=== PATIENT | male | born 1960 | race Caucasian/White ===

== ENCOUNTER 2020-03-20 13:00 | Outpatient (RCR) | payer OTHER, MEDICAID, SELFPAY | END 2020-05-01 08:23 | disposition home or self-care (01) | LOC: HO.PTCHIC 13:00 | PROVIDERS: PCP Internal Medicine; Visit Provider Neurological Surgery | DX: M54.12 Radiculopathy, cervical region (principal) | CPT/HCPCS: 97110; 97140; 97162 ==

== ENCOUNTER 2020-11-08 11:00 | Outpatient (RCR) | payer OTHER, MEDICAID, SELFPAY | END 2020-11-08 17:03 | disposition home or self-care (01) | LOC: HO.PTCHIC 11:00 | PROVIDERS: PCP Internal Medicine; Visit Provider Physician Assistant | DX: Z98.890 Other specified postprocedural states (principal) | CPT/HCPCS: 97110; 97140; 97162; 97164; 97530 ==

== ENCOUNTER 2022-07-30 05:43 | Day surgery (SDC) | payer MEDICARE, MEDICAID, SELFPAY ==
[2022-07-26 06:49] VITALS: BMI 24.2
--- NOTE | 2022-07-26 11:48 | HO.ANESPROP2 ---
HPI - Anesthesia Eval Consult details Narrative: 61yo M for Left Carpal Tunnel Release Office eval with PCP 07/17/22 without acute issues PMFSH Past Medical History Medical History HTN (hypertension) TIA (transient ischemic attack) Surgical History Surgical History H/O excision of lamina of cervical vertebra for decompression of spinal cord History of carpal tunnel repair History of excision of lamina of cervical vertebra for decompression of spinal cord Hx of appendectomy Hx of cholecystectomy Social History Social History Are you a primary post acute care nurse practitioner to a significant other at home: No Do you presently have visiting nurse or other home services: No Patient Tobacco Use Status: Never used Tobacco Meds Allergies Allergy/AdvReac Type Severity Reaction Status Date / Time No Known Allergies Allergy Verified 07/30/22 06:09 Home Medications Medication Instructions Recorded Confirmed Last Taken Type aspirin 81 mg tablet,delayed 81 mg PO DAILY 07/26/22 07/26/22 Unknown History release hydrochlorothiazide 12.5 mg tablet 12.5 mg PO QAM 07/26/22 07/26/22 Unknown History labetalol 100 mg tablet 50 mg PO BEDTIME 07/26/22 07/26/22 Unknown History labetalol 100 mg tablet 100 mg PO DAILY 07/26/22 07/26/22 Unknown History lisinopril 20 mg tablet 20 mg PO DAILY 07/26/22 07/26/22 Unknown History Exam Exam Date and Time: July 26, 2022 1148 Height,Weight and Vital Signs: Height 5 ft 9 in Weight 74.389 kg Assessment and Plan Assessment Anesthesia Assessment: Chart Reviewed
[2022-07-30] MEDS: Lactated Ringers 1,000 ML 100 ML IVCONT (06:10)
[2022-07-30 06:27] VITALS: BP 137/93; PULSE 86; RESP 18; TEMP 36.6; O2SAT 97
--- NOTE | 2022-07-30 07:58 | HO.ANESPROP2 ---
FORMERLY [facility], LATER [facility] Past Medical History Medical History HTN (hypertension) TIA (transient ischemic attack) Family History Family history of problems with anesthesia: No Surgical History Surgical History H/O excision of lamina of cervical vertebra for decompression of spinal cord History of carpal tunnel repair History of excision of lamina of cervical vertebra for decompression of spinal cord Hx of appendectomy Hx of cholecystectomy Social History Social History Are you a primary healthcare applications analyst to a significant other at home: No Do you presently have visiting nurse or other home services: No Patient Tobacco Use Status: Never used Tobacco Use of substances other than those prescribed or required for medical reasons: Yes Substance Use Frequency: Weekly Have you been hit, kicked, punched, or otherwise hurt by someone within the past year? If so, by whom?: No Advance Directives: No Advance Directives Information Provided: No Advance Directives on File: No Recently lost weight without trying: No Eating poorly because of decreased appetite: No Nutrition Risks: No Nutritional Risk Poor oral hygiene: Yes (partial upper denture, broken teeth upper and lower) Meds Allergies Allergy/AdvReac Type Severity Reaction Status Date / Time No Known Allergies Allergy Verified 07/30/22 06:09 Active Medications: Current Medications Lactated Ringer's (Lr) 1,000 mls @ 100 mls/hr IVCONT .Q10H NICK Last Admin: 07/30/22 06:10 Dose: 100 mls/hr Home Medications Medication Instructions Recorded Confirmed Last Taken Type aspirin 81 mg tablet,delayed 81 mg PO DAILY 07/26/22 07/26/22 Unknown History release hydrochlorothiazide 12.5 mg tablet 12.5 mg PO QAM 07/26/22 07/26/22 Unknown History labetalol 100 mg tablet 50 mg PO BEDTIME 07/26/22 07/26/22 Unknown History labetalol 100 mg tablet 100 mg PO DAILY 07/26/22 07/26/22 Unknown History lisinopril 20 mg tablet 20 mg PO DAILY 07/26/22 07/26/22 Unknown History Exam Exam Date and Time: July 30, 2022 0758 Height,Weight and Vital Signs: Height 5 ft 9 in Weight 74.389 kg Last Vital Signs Temp 97.9 F 07/30/22 06:27 Pulse 86 07/30/22 06:27 Resp 18 07/30/22 06:27 BP 137/93 H 07/30/22 06:27 Pulse Ox 97 07/30/22 06:27 O2 Del Method Room Air 07/30/22 06:27 Airway Mallampati Class: II TM Dist: >3cm Neck ROM: Full Heart: RRR Lungs: CTA Assessment and Plan Final Anesthetic Review Family History of Problems with Anesthesia: No ASA Class: II Final Preanesthetic Review: Meds/Allgs Chart Reviewed, Consent Obtained/Reviewed and Anes Risks/Benef Reviewed Patient Risk: Low Procedure Risk: Low Anesthetic Plan Anesthetic Plan: MAC: Disposition: Standard PACU
--- NOTE | 2022-07-30 08:09 | W.PM.OPN ---
Operative Note Operative Note Date of Service: 07/30/22 Narrative: Diagnosis: Left carpal tunnel syndrome Procedure: Left median nerve release Surgeon: Ludwig Patino MD PhD Description procedure: This 61-year-old male Is suffering from a left carpal tunnel syndrome. He was offered a decompression of the median nerve. The procedure complications were explained. He was consented. He was brought to the operating room, where moderate sedation was applied. Prepping and draping was done followed by time-out. Marcaine was injected into the mid volar region. A midvolr incision was made. The ligamentum Carpi transversum was opened sharply until the median nerve became visible. A Metzenbaum scissor was used to decompress the median nerve proximally and distally over its trajectory. Significant compression was present. Hemostasis was done. The incision was closed with 3 interrupted sutures. that compressive Sohan wrap was used for hemostasis. All sponge and needle counts were correct. Patient was transported to the recovery room Anesthesia: Moderate sedation and local anesthetic Blood loss: Minimal Complications: None Disposition: Discharge home
[2022-07-30 08:13] VITALS: BP 104/62; PULSE 81; RESP 16; TEMP 36.4; O2SAT 95
--- NOTE | 2022-07-30 08:17 | PM.DS ---
DS: Providers Provider Date of Service: 07/30/22 Date of discharge: 07/30/22 Primary care physician: Osmar Woods MD Admitting clinician: Ludwig Patino DS: Diagnosis Discharge Diagnosis (1) Carpal tunnel syndrome: Status: Acute DS: Summary Time Spent with Patient Time attestation: Total time managing care of this patient today ____ minutes. Discharge coordination time: Less than 30 minutes Quality: Safe Use of Opioids Does Pt have an Active Cancer Diagnosis on the Problem List?: No Quality: Stroke Does the patient have a stroke diagnosis?: No Physical Exam Vital Signs: Vital Signs: Last Vital Signs Temp 97.9 F 07/30/22 06:27 Pulse 86 07/30/22 06:27 Resp 18 07/30/22 06:27 BP 137/93 H 07/30/22 06:27 Pulse Ox 97 07/30/22 06:27 O2 Del Method Room Air 07/30/22 06:27 BMI result Body Mass Index 24.2 Discharge Plan Discharge Patient Disposition: Home, Self-Care Referrals: Osmar Woods MD [Primary Care Provider] - 1 Week Discharge Medications: New tramadol 50 mg tablet 50 mg PO Q6H PRN (Reason: pain) Qty: 30 0RF Continued aspirin 81 mg tablet,delayed release (DR/EC) 81 mg PO DAILY labetalol 100 mg Tablet 100 mg PO DAILY hydrochlorothiazide 12.5 mg Tablet 12.5 mg PO QAM lisinopril 20 mg Tablet 20 mg PO DAILY labetalol 100 mg Tablet 50 mg PO BEDTIME Discharge Orders: Discharge Order (Routine); Ordered 07/30/22 Ordered By: Geovanni Franks Diet: Advance to usual diet Activity on Discharge: As tolerated Activity Restrictions/Additional Instructions: You may remove your jeremy wrap on post op day 3, as well as the dressing underneath it There are sutures in your wound, and you will need these removed 10-14 days after surgery. Please call the office to arrange this visit, You can use your hand as much as you like, however, please avoid straining or heavy lifting It will help swelling in your hand to keep it elevated when you are not using it. You can shower on post op day 1, but please keep wound dry You can drive when you feel comfortable and are off narcotics If you experience any signs of infection such as fever, chills or redness/discharge from your wound,please call office right away
--- NOTE | 2022-07-30 08:19 | PC.NURSE ---
surgeon stated that antibiotic and IV Tylenol as ordered were not needed. Cefazolin 2 gm returned to pacu [facility]. Tylenol 1000 mg returned to [facility] but Leticia from pharmacy (per author request) came to worm picker tylenol as the [facility] door did not open for this return.
[2022-07-30 08:28] VITALS: BP 123/90; PULSE 76; RESP 18; TEMP 36.1; O2SAT 96
== END 2022-07-30 09:20 | disposition home or self-care (01) ==
PROVIDERS: PCP Internal Medicine; Visit Provider Neurological Surgery
PROC: (CPT 64721; principal; 2022-07-30 07:30)
DX: G56.02 Carpal tunnel syndrome, left upper limb (principal); R20.2 Paresthesia of skin; R20.0 Anesthesia of skin; M79.642 Pain in left hand; I10 Essential (primary) hypertension; Z86.73 Personal history of transient ischemic attack (TIA), and cerebral infarction without residual deficits; Z79.82 Long term (current) use of aspirin; Z79.899 Other long term (current) drug therapy; Z98.890 Other specified postprocedural states
CPT/HCPCS: 64721; J0131; J0690; J1100; J2250; J2405; J3010

== ENCOUNTER → 2022-08-14 10:44 | Outpatient (BNVA) | payer MEDICARE, MEDICAID, SELFPAY | PROVIDERS: PCP Internal Medicine; Visit Provider Neurological Surgery | DX: Z48.811 Encounter for surgical aftercare following surgery on the nervous system (principal); Z86.69 Personal history of other diseases of the nervous system and sense organs | CPT/HCPCS: 99212 ==

== ENCOUNTER 2022-11-26 09:15 | Outpatient (REF) | payer MEDICARE, MEDICAID, SELFPAY ==
[2022-11-26 15:50] LABS: Cholesterol 188 mg/dL (<200); HDL Cholesterol 55 mg/dL (>40); LDL Cholesterol Calculated 98 mg/dL (<100); Triglycerides 177 mg/dL (<150)
== END 2022-11-26 09:16 | disposition home or self-care (01) ==
LOC: HO.CHCLDS 09:15
PROVIDERS: Visit Provider Internal Medicine
DX: E78.49 Other hyperlipidemia (principal)
CPT/HCPCS: 36415; 80061

== ENCOUNTER 2023-06-03 14:40 | Outpatient (AMB) | payer MEDICARE, MEDICAID, SELFPAY ==
--- NOTE | 2023-06-03 15:51 | A.OFFVIS_ITS ---
Intake Intake Visit Reasons: neck to shoulder pain burning Allergies No Known Allergies Allergy (Verified 07/30/22 06:09) [facility] Medical History HTN (hypertension) TIA (transient ischemic attack) Surgical History H/O excision of lamina of cervical vertebra for decompression of spinal cord History of carpal tunnel repair History of excision of lamina of cervical vertebra for decompression of spinal cord Hx of appendectomy Hx of cholecystectomy Social History Are you a primary career consultant to a significant other at home: No Do you presently have visiting nurse or other home services: No Patient Tobacco Use Status: Never used Tobacco Assessment & Plan Assessment & Plan (1) Cervical radiculopathy: Code(s): M54.12 - Radiculopathy, cervical region Plan Mr Harrington is a patient known to us from multiple surgeries including previous ACDF C4-5, C5-6 with posterior bilateral C5, C6 and C7 foraminotomies in 2020. He also had a carpal tunnel release done by Dr. Patino last year. Comes in because he has been having over the last 4-6 months worsening of his neck pain, radiating down into his right trapezius and right shoulder. The pain does wake him up at night. If he turns his head the right way he can make it shoots down into his shoulder. He also reports feelings of weakness in his arm. He can take Motrin or Tylenol as needed but generally they are not effective. On my exam he has no focal findings, his wounds are all healed up and overall his exam is reassuring. My suspicion is he may be having adjacent segment disease at C3- 4 given that is dermatomal distribution is down into the shoulder. I am going to order an MRI cervical spine with and without gadolinium. I ordered Ativan for anxiety before he goes in the MRI machine. Total amount of time spent in this visit was 20 minutes in discussion of symptoms, ordering imaging and subsequent plan of care Geovanni Patino MD,PhD [facility] Orders: Orders MR cervical spine wo/w con Today M47.812 - Spondylosis without myelopathy or radiculopathy, cervical region Medications: New lorazepam (Ativan) take one tab an hour prior to mri and one tab upon entering mri if needed. 1 mg PO ONCE PRN 2 tabs 0RF anxiety Coding Level of Care Code Est Pt Level 3 (26227) Diagnoses Cervical radiculopathy M54.12
== END 2023-06-03 16:01 | disposition home or self-care (01) ==
PROVIDERS: PCP Internal Medicine; Visit Provider Physician Assistant
DX: M54.12 Radiculopathy, cervical region (principal)
CPT/HCPCS: 99213

== ENCOUNTER → 2023-06-03 14:40 | Outpatient (BNVA) | payer MEDICARE, MEDICAID, OTHER, SELFPAY | PROVIDERS: PCP Internal Medicine; Visit Provider Physician Assistant | DX: M54.12 Radiculopathy, cervical region (principal) | CPT/HCPCS: 99212 ==

== ENCOUNTER 2023-06-09 08:40 | Outpatient (REF) | payer MEDICARE, MEDICAID, OTHER, SELFPAY ==
[2023-06-09 14:57] LABS: Alanine Aminotransferase 44 U/L (0-40); Albumin Level 4.2 g/dL (3.5-5.0); Alkaline Phosphatase 61 U/L (39-117); Anion Gap 12 (12-20); Aspartate Amino Transferase 23 U/L (5-37); Bilirubin Total 1.3 mg/dL (0.0-1.0); Blood Urea Nitrogen 17 mg/dL (9-16); Calcium 9.8 mg/dL (8.4-10.2); Carbon Dioxide 30 mmol/L (22-29); Chloride 105 mmol/L (96-108); Cholesterol 159 mg/dL (<200); Estimated Glomerular Filt Rate > 60; Glucose Random 77 mg/dL (60-115); HDL Cholesterol 52 mg/dL (>40); LDL Cholesterol Calculated 79 mg/dL (<100); Potassium 3.7 mmol/L (3.3-5.1); Sodium 143 mmol/L (135-145); Total Protein 7.4 g/dL (6.5-8.0); Triglycerides 144 mg/dL (<150)
== END 2023-06-09 08:41 | disposition home or self-care (01) ==
LOC: HO.CHCLDS 08:40
PROVIDERS: Visit Provider Internal Medicine
DX: I10 Essential (primary) hypertension (principal); E78.00 Pure hypercholesterolemia, unspecified
CPT/HCPCS: 36415; 80053; 80061

== ENCOUNTER 2023-06-23 13:19 | Outpatient (REF) | payer OTHER, MEDICARE, MEDICAID, SELFPAY ==
--- NOTE | ~2023-06-23 | MR_ITS ---
EXAMINATION: MR CERVICAL SPINE WITHOUT AND WITH CONTRAST CLINICAL INFORMATION: Numbness and burning in right upper extremity. Left arm weakness. Finger numbness on right side. Prior cervical fusion surgery. COMPARISON: MRI dated 05/22/2021. TECHNIQUE: Multiplanar, multisequential imaging of the cervical spine was performed before and after the intravenous administration of 8 mL of Gadavist. FINDINGS: VERTEBRAL BODIES AND PARASPINAL SOFT TISSUES: The patient is status post previous anterior cervical discectomies and fusion with hardware instrumentation at the C4-C5 and C5-C6 levels. Mild posterior endplate edema noted at the C3-C4 level with a minimal retrosubluxation. There is a stable mild leftward curvature of the cervical spine as well. Moderate disc space narrowing again evident with a mild posterior subluxation at the C6-C7 level. The remainder of the marrow is fairly homogeneous. No compression fractures are seen. The paraspinal soft tissues are normal. The vertebral artery flow-voids are maintained. The imaged lung apices are grossly clear. CERVICOMEDULLARY JUNCTION AND VISUALIZED POSTERIOR FOSSA: The imaged portions of the brain demonstrate no acute abnormality. No cord signal changes or syrinx visible. Of note, there is mild mucosal thickening and dependent fluid in the sphenoid sinus cavities. No abnormal intradural enhancement is seen on postcontrast imaging. SPINAL LEVELS: C2-C3: No significant disc pathology, central canal stenosis, or foraminal narrowing. C3-C4: [id number] loss of disc height and mild posterior subluxation again evident. Broad-based disc-osteophyte complex impresses upon the ventral cord and thecal sac with advanced right-sided facet arthropathy, progressed since the previous exam. Severe right foraminal narrowing and mild central canal stenosis. There is edema in the right articular processes with a facet joint effusion. Additional mild edema is present in the deep right posterior paraspinal soft tissues, presumed to be reactive. Findings are new compared to prior imaging. Moderate to severe left foraminal narrowing as well, unchanged. C4-C5: Post fusion changes with hardware instrumentation. Uncovertebral joint spurring results in [id number] foraminal encroachment. C5-C6: Post fusion changes with bulky uncovertebral joint spurring on the right side, as on prior imaging with severe right foraminal encroachment. No central canal stenosis. C6-C7: Moderate loss of disc height and posterior subluxation, as on prior imaging. Bulging disc and uncovertebral joint spurring with facet arthropathy result in significant right foraminal encroachment. Mild left foraminal narrowing. No central canal stenosis. C7-T1: Severe right-sided facet arthropathy and mild right foraminal narrowing. No focal disc protrusion or central canal stenosis. MR/MR cervical spine wo/w con IMPRESSION: Worsened right-sided facet arthropathy at the C3-C4 level with edema in the right articular processes and deep anterior right paraspinal soft tissues, presumably reactive. Mild central canal stenosis and mild ventral cord distortion. Mild posterior endplate edema. [id number] foraminal narrowing, worse on the right side. Status post previous anterior cervical discectomy and fusion with hardware instrumentation at the C4-C5 and C5-C6 levels. Severe right foraminal narrowing at C5-C6, unchanged from the previous exam. Stable moderate loss of disc height at the C6-C7 level with a generalized disc bulge and endplate spurring resulting in severe right foraminal encroachment. [id number] right-sided facet arthropathy. Stable right-sided hypertrophic facet arthropathy and mild right foraminal narrowing at the C7-T1 level.
[2023-06-23] MEDS: gadobutroL 10 ML VIAL IVPUSH (14:16)
== END 2023-06-23 13:20 | disposition home or self-care (01) ==
LOC: HO.MRI 13:19
PROVIDERS: PCP Internal Medicine; Visit Provider Physician Assistant
DX: M47.812 Spondylosis without myelopathy or radiculopathy, cervical region (principal)
CPT/HCPCS: 72156; A9585

== ENCOUNTER 2023-07-23 15:15 | Outpatient (AMB) | payer OTHER, MEDICARE, MEDICAID, SELFPAY ==
--- NOTE | 2023-07-23 15:22 | MHC.OFFVIS ---
Vital Signs 07/23/23 15:34 Height 5 ft 9 in Weight 179 lb 2 oz BMI 26.4 BP 138/88 Blood Pressure Location Lt brachial Position Sitting Respiration 16 Pulse 80 Pulse Source Pulse Oximeter Pulse Oximetry (%) 97 Oxygen Delivery Method Room Air Intake Visit Reasons: CERVICAL RADICULOPATHY Intake Note: Patient comes in for initial visit was referred by spine center. Reports pain 05/17. Allergies No Known Allergies Allergy (Verified 07/23/23 15:35) HPI Comments Details: Thony is very pleasant 62 years old gentleman who presents in my office with complains on pain in the back of the neck with radiation to the right upper shoulder. He reports his pain is intermittent, the pain is related to positioning of his head, and associated with numbness of the right side of the neck, arm, chest, and burning sensation. He reports that his problem started on August 06. He reports that pain onset was sudden and the pain is intermittent and not constant. He can not sleep normally because of his pain can not do activities of daily living can not take care of himself but he can not function normally. He is retired individual. Last time he worked was July of 2018. He reports that weather changes and called aggravate his pain as well as movement of the neck. His pain is most severe in the morning and less severe during the daytime. In terms of tissue damage he reports his pain is jumping, flushing, shooting, stabbing, lancinating, sharp, cutting, lacerating, pinching, cramping, crushing, hot burning, scalding, searing, tingling, stinging. He went for consultation for his pain with [facility], he was sent for MRI of the cervical spine. From the last note of Geovanni Franks the possibility of the additional surgery on his neck can not be excluded. Nevertheless he came to me today to discuss possibility of treatment of his neck pain with interventional pain management. He has a MRI of cervical spine which is dictated as below. There are significant changes at C3-C4 level with disc protrusion this level and mild cervical canal stenosis. There is also severe right-sided corresponding to the most of his pain C3-C4 foraminal stenosis. This patient had history of physical therapy each time he went for his surgery. He never had any significant injections in the past. His past medical history is: Headaches, hypertension, past surgical history: Anterior and posterior fusion of the neck. 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 [phone] Siomara Augustin. He denies smoking cigarettes drinks 5 beers a week denies coffee and caffeinated beverages and admits recreational drugs every day. Most likely cannabis. [facility] Medical History HTN (hypertension) TIA (transient ischemic attack) Surgical History H/O excision of lamina of cervical vertebra for decompression of spinal cord History of carpal tunnel repair History of excision of lamina of cervical vertebra for decompression of spinal cord Hx of appendectomy Hx of cholecystectomy Social History Are you a primary long term care pharmacist to a significant other at home: No Do you presently have visiting nurse or other home services: No Patient Tobacco Use Status: Never used Tobacco Review of Systems Const All systems reviewed & are unremarkable except as noted in HPI and below Reports no additional complaints Eyes Reports no additional complaints ENT Reports no additional complaints and Reports Normal hearing present Card Reports no additional complaints Resp Reports no additional complaints GI Reports no additional complaints Reports no additional complaints Musc Reports as per HPI Neuro Reports as per HPI, Reports Normal hearing present, Denies Abnormal speech present and Denies Sensory deficit (Neuro) Psych Reports no additional complaints Physical Exam Vital Signs: Last Vital Signs Pulse 80 07/23/23 15:34 Resp 16 07/23/23 15:34 BP 138/88 07/23/23 15:34 Pulse Ox 97 07/23/23 15:34 Oxygen Delivery Method Room Air 07/23/23 15:34 BMI result Body Mass Index 26.4 Const General: cooperative, comfortable, no acute distress and well groomed Orientation/consciousness: patient oriented x3 Eyes General: appearance normal, both eyes and all related structures Pupils: Equal, round and reactive pupils present EOM: EOMs intact bilaterally Neck Other: There are 2 scars on the 1 on anterior surface of the neck on the right side and 1 on posterior midline surface of the neck both heart is are very healed no signs of inflammation or infection. Neck: No full ROM Chest Chest palpation & inspection: normal inspection of the chest Resp Effort & Inspection: normal respiratory effort, able to speak in complete sentences, normal respiratory pattern, no audible wheezes and no cough Cardio Jugular venous distension: no JVD GI Inspection: Yes normal to inspection Neuro General: patient oriented x3 and gait normal Cranial nerves: Yes CN's II-XII intact bilaterally, Yes Equal, round and reactive pupils present, Yes Normal hearing present and Yes Ability to bilaterally elevate shoulders present Speech: No Abnormal speech present Gait exam (Neuro): Normal gait present Motor exam (neuro): 5/5 motor strength present throughout Sensory Exam: No Sensory deficit (Neuro) Extrem General: No pedal edema Psych Speech and movement: Normal speech and movement present Affect: normal affect Attitude: cooperative Thought process: Normal thought process present Thought content: Normal thought content present Insight: Good insight present (Psych) Judgement: Good judgement present (Psych) Results Reviewed Results Reviewed: MR CERVICAL SPINE WITHOUT AND WITH CONTRAST CLINICAL INFORMATION: Numbness and burning in right upper extremity. Left arm weakness. Finger numbness on right side. Prior cervical fusion surgery. COMPARISON: MRI dated 05/22/2021. TECHNIQUE: Multiplanar, multisequential imaging of the cervical spine was performed before and after the intravenous administration of 8 mL of Gadavist. FINDINGS: VERTEBRAL BODIES AND PARASPINAL SOFT TISSUES: The patient is status post previous anterior cervical discectomies and fusion with hardware instrumentation at the C4-C5 and C5-C6 levels. Mild posterior endplate edema noted at the C3-C4 level with a minimal retrosubluxation. There is a stable mild leftward curvature of the cervical spine as well. Moderate disc space narrowing again evident with a mild posterior subluxation at the C6-C7 level. The remainder of the marrow is fairly homogeneous. No compression fractures are seen. The paraspinal soft tissues are normal. The vertebral artery flow-voids are maintained. The imaged lung apices are grossly clear. CERVICOMEDULLARY JUNCTION AND VISUALIZED POSTERIOR FOSSA: The imaged portions of the brain demonstrate no acute abnormality. No cord signal changes or syrinx visible. Of note, there is mild mucosal thickening and dependent fluid in the sphenoid sinus cavities. No abnormal intradural enhancement is seen on postcontrast imaging. SPINAL LEVELS: C2-C3: No significant disc pathology, central canal stenosis, or foraminal narrowing. C3-C4: Qhie-kv-qxbynjdf loss of disc height and mild posterior subluxation again evident. Broad-based disc-osteophyte complex impresses upon the ventral cord and thecal sac with advanced right-sided facet arthropathy, progressed since the previous exam. Severe right foraminal narrowing and mild central canal stenosis. There is edema in the right articular processes with a facet joint effusion. Additional mild edema is present in the deep right posterior paraspinal soft tissues, presumed to be reactive. Findings are new compared to prior imaging. Moderate to severe left foraminal narrowing as well, unchanged. C4-C5: Post fusion changes with hardware instrumentation. Uncovertebral joint spurring results in [id number]-[id number] foraminal encroachment. C5-C6: Post fusion changes with bulky uncovertebral joint spurring on the right side, as on prior imaging with severe right foraminal encroachment. No central canal stenosis. C6-C7: Moderate loss of disc height and posterior subluxation, as on prior imaging. Bulging disc and uncovertebral joint spurring with facet arthropathy result in significant right foraminal encroachment. Mild left foraminal narrowing. No central canal stenosis. C7-T1: Severe right-sided facet arthropathy and mild right foraminal narrowing. No focal disc protrusion or central canal stenosis. MR/MR cervical spine wo/w con IMPRESSION: Worsened right-sided facet arthropathy at the C3-C4 level with edema in the right articular processes and deep anterior right paraspinal soft tissues, presumably reactive. Mild central canal stenosis and mild ventral cord distortion. Mild posterior endplate edema. Gbqspoue-dj-pekwbs foraminal narrowing, worse on the right side. Status post previous anterior cervical discectomy and fusion with hardware instrumentation at the C4-C5 and C5-C6 levels. Severe right foraminal narrowing at C5-C6, unchanged from the previous exam. Stable moderate loss of disc height at the C6-C7 level with a generalized disc bulge and endplate spurring resulting in severe right foraminal encroachment. Euwzmumd-xx-jtewjz right-sided facet arthropathy. Stable right-sided hypertrophic facet arthropathy and mild right foraminal narrowing at the C7-T1 leve Assessment & Plan Assessment & Plan (1) Postlaminectomy syndrome of cervical region: Code(s): M96.1 - Postlaminectomy syndrome, not elsewhere classified Category: Medical (2) Chronic pain syndrome: Code(s): G89.4 - Chronic pain syndrome Category: Medical Plan Examining the MRI of this patient widespread and significant hardware in the neck is noted. Most likely the images on fluoroscopy of this patient will be of very poor quality to perform any injections in the neck. Nevertheless I decided to send him for x-ray of cervical spine and evaluate position and quality of hardware he has not his neck. Unfortunately neuromodulation with spinal cord stimulation would be impossible for this patient because of posterior fusion. His pain is intermittent and therefore I do not believe that intrathecal pain pump be good idea for the pain of this patient. Possibility exists to perform intra-articular C3-C4 injection on the right however it might be technically difficult because of hardware. C3 and C4 left-sided medial branch block also can not be attempted but again could be difficult because of the hardware and position of the elements of hardware. If by examining the x-rays of his cervical spine I will decide that I will be able to try to do some injections in his neck I will schedule him for the procedure as above. He will visit me in 1 week to discuss possible procedures with me. Orders: Orders XR cervical spine 3V Today M96.1 - Postlaminectomy syndrome, not elsewhere classified Coding Level of Care Code New Pt Level 3 (20005) Diagnoses Postlaminectomy syndrome of cervical region M96.1 Chronic pain syndrome G89.4
[2023-07-23 15:34] VITALS: BP 138/88; PULSE 80; RESP 16; O2SAT 97; BMI 26.4
== END 2023-07-23 16:09 | disposition home or self-care (01) ==
PROVIDERS: PCP Internal Medicine; Referring Provider Physician Assistant; Visit Provider Anesthesiology
DX: M96.1 Postlaminectomy syndrome, not elsewhere classified (principal); G89.4 Chronic pain syndrome
CPT/HCPCS: 99203

== ENCOUNTER → 2023-07-23 15:15 | Outpatient (BNVA) | payer OTHER, MEDICARE, MEDICAID, SELFPAY | PROVIDERS: PCP Internal Medicine; Referring Provider Physician Assistant; Visit Provider Anesthesiology | DX: G89.4 Chronic pain syndrome (principal); M96.1 Postlaminectomy syndrome, not elsewhere classified | CPT/HCPCS: 99202 ==

== ENCOUNTER 2023-08-14 11:29 | Outpatient (REF) | payer OTHER, SELFPAY ==
--- NOTE | ~2023-08-14 | XR_ITS ---
EXAMINATION: XR CERVICAL SPINE CLINICAL INFORMATION: Post laminectomy syndrome, not elsewhere classified. COMPARISON: MR cervical spine 06/23/2023. TECHNIQUE: 3 views of the cervical spine were obtained. FINDINGS: Straightening of the normal cervical lordosis. Status post ACDF with hardware spanning C4-C5 and C5-C6. Spondylosis with moderate loss of disc space height and hypertrophic change at C6-C7. Mild anterior loss of height of C7 vertebral body. XR/XR cervical spine 3V IMPRESSION: 1. Status post anterior cervical discectomies and fusion at C4-C5 and C5-C6. Hardware appears intact. 2. Advanced degenerative changes at C6-C7.
== END 2023-08-14 11:30 | disposition home or self-care (01) ==
LOC: HO.XRAY 11:29
PROVIDERS: PCP Internal Medicine; Visit Provider Anesthesiology
DX: M96.1 Postlaminectomy syndrome, not elsewhere classified (principal)
CPT/HCPCS: 72040

== ENCOUNTER 2023-09-01 13:46 | Outpatient (AMB) | payer OTHER, SELFPAY ==
--- NOTE | 2023-09-01 13:54 | MHC.OFFVIS ---
Vital Signs 09/01/23 13:59 Height 5 ft 9 in Weight 180 lb 4 oz BMI 26.6 BP 118/76 Blood Pressure Location Lt brachial Position Sitting Respiration 16 Pulse 79 Pulse Source Pulse Oximeter Pulse Oximetry (%) 95 Oxygen Delivery Method Room Air Intake Visit Reasons: Discuss X-Ray Results Intake Note: Patient comes in to discuss xray results. Reports pain 05/17. Allergies No Known Allergies Allergy (Verified 09/01/23 13:59) HPI Comments Details: Thony is back in my office after x-ray of the cervical spine I sent him for to evaluate hardware in his cervical spine. Unfortunately patient today informed me that he is moving to [place]. His move will be within few weeks. Therefore at this time it has a moot point to continue any evaluation and or planning new treatments for this patient. I wish him good luck and recommend him to find a good pain medicine doctor as well as good neurosurgeon to help his pain. very pleasant 62 years old gentleman who presents in my office with complains on pain in the back of the neck with radiation to the right upper shoulder. He reports his pain is intermittent, the pain is related to positioning of his head, and associated with numbness of the right side of the neck, arm, chest, and burning sensation. He reports that his problem started on August 06. He reports that pain onset was sudden and the pain is intermittent and not constant. He can not sleep normally because of his pain can not do activities of daily living can not take care of himself but he can not function normally. He is retired individual. Last time he worked was July of 2018. He reports that weather changes and called aggravate his pain as well as movement of the neck. His pain is most severe in the morning and less severe during the daytime. In terms of tissue damage he reports his pain is jumping, flushing, shooting, stabbing, lancinating, sharp, cutting, lacerating, pinching, cramping, crushing, hot burning, scalding, searing, tingling, stinging. He went for consultation for his pain with [facility], he was sent for MRI of the cervical spine. From the last note of Geovanni Franks the possibility of the additional surgery on his neck can not be excluded. Nevertheless he came to me today to discuss possibility of treatment of his neck pain with interventional pain management. He has a MRI of cervical spine which is dictated as below. There are significant changes at C3-C4 level with disc protrusion this level and mild cervical canal stenosis. There is also severe right-sided corresponding to the most of his pain C3-C4 foraminal stenosis. This patient had history of physical therapy each time he went for his surgery. He never had any significant injections in the past. His past medical history is: Headaches, hypertension, past surgical history: Anterior and posterior fusion of the neck. 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 He denies smoking cigarettes drinks 5 beers a week denies coffee and caffeinated beverages and admits recreational drugs every day. Most likely cannabis. [facility] Medical History HTN (hypertension) TIA (transient ischemic attack) Surgical History H/O excision of lamina of cervical vertebra for decompression of spinal cord History of carpal tunnel repair History of excision of lamina of cervical vertebra for decompression of spinal cord Hx of appendectomy Hx of cholecystectomy Social History Are you a primary day care director to a significant other at home: No Do you presently have visiting nurse or other home services: No Patient Tobacco Use Status: Never used Tobacco Review of Systems Const All systems reviewed & are unremarkable except as noted in HPI and below ENT Reports Normal hearing present Neuro Reports Normal hearing present, Denies Abnormal speech present and Denies Sensory deficit (Neuro) Physical Exam Vital Signs: Last Vital Signs Pulse 79 09/01/23 13:59 Resp 16 09/01/23 13:59 BP 118/76 09/01/23 13:59 Pulse Ox 95 09/01/23 13:59 Oxygen Delivery Method Room Air 09/01/23 13:59 BMI result Body Mass Index 26.6 Const General: cooperative, comfortable, no acute distress and well groomed Orientation/consciousness: patient oriented x3 Eyes General: appearance normal, both eyes and all related structures Pupils: Equal, round and reactive pupils present EOM: EOMs intact bilaterally Neck Other: There are 2 scars on the 1 on anterior surface of the neck on the right side and 1 on posterior midline surface of the neck both heart is are very healed no signs of inflammation or infection. Neck: No full ROM Chest Chest palpation & inspection: normal inspection of the chest Resp Effort & Inspection: normal respiratory effort, able to speak in complete sentences, normal respiratory pattern, no audible wheezes and no cough Cardio Jugular venous distension: no JVD GI Inspection: Yes normal to inspection Neuro General: patient oriented x3 and gait normal Cranial nerves: Yes CN's II-XII intact bilaterally, Yes Equal, round and reactive pupils present, Yes Normal hearing present and Yes Ability to bilaterally elevate shoulders present Speech: No Abnormal speech present Gait exam (Neuro): Normal gait present Motor exam (neuro): 5/5 motor strength present throughout Sensory Exam: No Sensory deficit (Neuro) Extrem General: No pedal edema Psych Speech and movement: Normal speech and movement present Affect: normal affect Attitude: cooperative Thought process: Normal thought process present Thought content: Normal thought content present Insight: Good insight present (Psych) Judgement: Good judgement present (Psych) Results Reviewed Results Reviewed: MR CERVICAL SPINE WITHOUT AND WITH CONTRAST CLINICAL INFORMATION: Numbness and burning in right upper extremity. Left arm weakness. Finger numbness on right side. Prior cervical fusion surgery. COMPARISON: MRI dated 05/22/2021. TECHNIQUE: Multiplanar, multisequential imaging of the cervical spine was performed before and after the intravenous administration of 8 mL of Gadavist. FINDINGS: VERTEBRAL BODIES AND PARASPINAL SOFT TISSUES: The patient is status post previous anterior cervical discectomies and fusion with hardware instrumentation at the C4-C5 and C5-C6 levels. Mild posterior endplate edema noted at the C3-C4 level with a minimal retrosubluxation. There is a stable mild leftward curvature of the cervical spine as well. Moderate disc space narrowing again evident with a mild posterior subluxation at the C6-C7 level. The remainder of the marrow is fairly homogeneous. No compression fractures are seen. The paraspinal soft tissues are normal. The vertebral artery flow-voids are maintained. The imaged lung apices are grossly clear. CERVICOMEDULLARY JUNCTION AND VISUALIZED POSTERIOR FOSSA: The imaged portions of the brain demonstrate no acute abnormality. No cord signal changes or syrinx visible. Of note, there is mild mucosal thickening and dependent fluid in the sphenoid sinus cavities. No abnormal intradural enhancement is seen on postcontrast imaging. SPINAL LEVELS: C2-C3: No significant disc pathology, central canal stenosis, or foraminal narrowing. C3-C4: Immz-rg-zpluslix loss of disc height and mild posterior subluxation again evident. Broad-based disc-osteophyte complex impresses upon the ventral cord and thecal sac with advanced right-sided facet arthropathy, progressed since the previous exam. Severe right foraminal narrowing and mild central canal stenosis. There is edema in the right articular processes with a facet joint effusion. Additional mild edema is present in the deep right posterior paraspinal soft tissues, presumed to be reactive. Findings are new compared to prior imaging. Moderate to severe left foraminal narrowing as well, unchanged. C4-C5: Post fusion changes with hardware instrumentation. Uncovertebral joint spurring results in [id number]-th-[id number] foraminal encroachment. C5-C6: Post fusion changes with bulky uncovertebral joint spurring on the right side, as on prior imaging with severe right foraminal encroachment. No central canal stenosis. C6-C7: Moderate loss of disc height and posterior subluxation, as on prior imaging. Bulging disc and uncovertebral joint spurring with facet arthropathy result in significant right foraminal encroachment. Mild left foraminal narrowing. No central canal stenosis. C7-T1: Severe right-sided facet arthropathy and mild right foraminal narrowing. No focal disc protrusion or central canal stenosis. MR/MR cervical spine wo/w con IMPRESSION: Worsened right-sided facet arthropathy at the C3-C4 level with edema in the right articular processes and deep anterior right paraspinal soft tissues, presumably reactive. Mild central canal stenosis and mild ventral cord distortion. Mild posterior endplate edema. Qotmtyrb-ra-sukawp foraminal narrowing, worse on the right side. Status post previous anterior cervical discectomy and fusion with hardware instrumentation at the C4-C5 and C5-C6 levels. Severe right foraminal narrowing at C5-C6, unchanged from the previous exam. Stable moderate loss of disc height at the C6-C7 level with a generalized disc bulge and endplate spurring resulting in severe right foraminal encroachment. Bsrvhkwj-wm-xrjmla right-sided facet arthropathy. Stable right-sided hypertrophic facet arthropathy and mild right foraminal narrowing at the C7-T1 leve Assessment & Plan Assessment & Plan (1) Postlaminectomy syndrome of cervical region: Code(s): M96.1 - Postlaminectomy syndrome, not elsewhere classified Category: Medical (2) Chronic pain syndrome: Code(s): G89.4 - Chronic pain syndrome Category: Medical Plan Examining the MRI of this patient widespread and significant hardware in the neck is noted. Most likely the images on fluoroscopy of this patient will be of very poor quality to perform any injections in the neck. Nevertheless I decided to send him for x-ray of cervical spine and evaluate position and quality of hardware he has not his neck. Unfortunately neuromodulation with spinal cord stimulation would be impossible for this patient because of posterior fusion. I was thinking about pain pump versus intra-articular steroid injections when patient informed me that he is about to move in 3 weeks to [place]. I wish him well and recommend him to find good pain medicine doctor in [place]. Coding Level of Care Code Est Pt Level 3 (01836) Diagnoses Postlaminectomy syndrome of cervical region M96.1 Chronic pain syndrome G89.4
[2023-09-01 13:59] VITALS: BP 118/76; PULSE 79; RESP 16; O2SAT 95; BMI 26.6
== END 2023-09-01 14:58 | disposition home or self-care (01) ==
PROVIDERS: PCP Internal Medicine; Visit Provider Anesthesiology
DX: M96.1 Postlaminectomy syndrome, not elsewhere classified (principal); G89.4 Chronic pain syndrome
CPT/HCPCS: 99213

== ENCOUNTER → 2023-09-01 13:46 | Outpatient (BNVA) | payer OTHER, SELFPAY | PROVIDERS: PCP Internal Medicine; Visit Provider Anesthesiology | DX: G89.4 Chronic pain syndrome (principal); M96.1 Postlaminectomy syndrome, not elsewhere classified | CPT/HCPCS: 99212 ==